=== PATIENT | female | born 1995 ===

== ENCOUNTER 2019-06-23 20:31 | Outpatient (CLI) | payer OTHER ==
[2019-06-23] MEDS ORDERED: LACTATED RINGERS 1,000 ML IV ONE (21:17)
[2019-06-23 21:43] LABS: Bilirubin,Urine NEG (Negative); Blood,Urine NEG (Negative); Color,Urine Straw (Yellow); Mucus,Urine FEW /HPF; Protein,Urine <15 mg/dL mg/dL (Negative); Urobilinogen,Urine < 2.0 mg/dL (<2.0)
== END 2019-06-23 23:05 | disposition home or self-care (01) ==
LOC: TRG 20:31
PROVIDERS: ATTEND Obstetrics & Gynecology
DX: O26.892 Other specified pregnancy related conditions, second trimester (principal); R25.2 Cramp and spasm; O47.02 False labor before 37 completed weeks of gestation, second trimester; O99.342 Other mental disorders complicating pregnancy, second trimester; F41.9 Anxiety disorder, unspecified; Z3A.27 27 weeks gestation of pregnancy
CPT/HCPCS: 81001; 96360; J7120